=== PATIENT | male | born 1960 | race Caucasian/White ===

== ENCOUNTER → 2016-12-18 | Outpatient (CLI) | payer OTHER ==
[~2016-12-18] VITALS: Ht 177.8 cm; Wt 86.2 kg
[~2016-12-18] MED LIST: ASPIR 8181 MG PO; LIPITOR 20 MG T20 M1 PO
--- NOTE | ~2016-12-18 | CATHLAB ---
[facility] [place]us [place] [address] INVASIVE PROCEDURE REPORT Name: JUSTEN PERAZA Room #: REG [facility]#: [id number] Admission: 12/18/16 Attend Phys: Aj Long Discharge: Date of : 60 Date of Service: 12/18/16 1132 Report #: [id number] THIS REPORT FOR: //name// CC: Aj Maldonado DATE OF SERVICE: 12/18/2016 INDICATIONS: An 55-year-old male patient with abnormal myocardial perfusion scan and cardiovascular risk factors. PROCEDURES: 1. Left heart catheterization. 2. Selective left and right coronary angiography. 3. Measurement of left ventricular end diastolic pressures. 4. Supervision of conscious sedation. BODS DEVELOPER: Aj Gross MD BRIEF DESCRIPTION OF PROCEDURE: After informed consent was obtained, the patient was brought to the cardiac catheterization laboratory in stable condition. The patient's right groin was prepped and draped in the usual sterile manner after which lidocaine was then instilled. Utilizing a modified Seldinger technique, the right femoral artery was then accessed. Under fluoroscopic visualization using selective coronary catheters, the right and left coronaries were opacified and visualized. The left ventriculogram was likewise imaged per standard protocol with EDP being measured. Subsequent to this, the sheath was removed, hemostasis achieved. The patient tolerated the procedure well. There were no complications. FINDINGS: 1. Hemodynamics: A. Aortic pressure 142/76. B. Left ventricular end diastolic pressure 20-22. 2. Fluoroscopy: Under fluoroscopic visualization, there was extensive calcific plaquing on the epicardial coronary arteries. No significant plaquing on the valvular intramyocardial structures of the heart. 3. Angiography: This is a right coronary dominant system. A. Left main normal origin and caliber, bifurcates left anterior descending and left circumflex and is free of high-grade disease. B. Left anterior descending is a moderate caliber type 3 vessel which courses in the anterior interventricular sulcus giving rise to septal and diagonal branches, which have only luminal irregularities and are free of high-grade disease. In the mid LAD, there is a small myocardial bridge, which is noted. It does not impede flow and there is no underlying vessel obstruction. 4. Left circumflex is a small diminutive vessel free of high-grade disease. [facility] [address] [email or web address] [address] INVASIVE PROCEDURE REPORT Name: JUSTEN PERAZA Room #: REG [facility]#: [id number] Admission: 12/18/16 Attend Phys: Aj Long Discharge: Date of : 60 Date of Service: 12/18/16 1132 Report #: [id number] 5. Right coronary artery is a large caliber dominant vessel, which proceeds in the AV groove posteriorly, gives rise to posterior descending artery, which is free of high-grade disease. The distal circulation including posterior wall branches, posterolateral branches free of high-grade disease, only mild luminal irregularities are noted. IMPRESSION: 1. 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 2. Normal hemodynamics. <ELECTRONICALLY SIGNED> By: Aj Gross MD 12/18/16 1604 1132 1259 Aj Gross MD /nt
[2016-12-18 07:33] VITALS: BP 121/49
== END | disposition home or self-care (01) ==
LOC: CATH 06:40
DX: I25.10 Atherosclerotic heart disease of native coronary artery without angina pectoris (principal)